=== PATIENT | female | born 1990 | race Caucasian/White ===

== ENCOUNTER → 2021-07-09 13:57 | Outpatient (CLI) | payer OTHER, SELFPAY ==
--- NOTE | 2021-07-09 14:03 | DI.US.S_ITS ---
PROCEDURE: US OB LIMITED INDICATIONS: INITIAL DATING VIABILITY OUTSIDE/PRIOR DATING DATA: Last menstrual period (LMP): Unknown. Estimated date of delivery (ROHIT) from first dating scan: December 12, 2021. TECHNIQUE: Real-time scanning was performed of the fetus, with image documentation. COMPARISON: None. FINDINGS: A single living intrauterine gestation is present. Presentation: Vertex. Placenta: Placental position is posterior, without previa. Amniotic fluid index: 11.9 cm, normal range is 5-24 cm. Single deepest vertical pocket is 4 cm. heart rate: 150 beats per minute. Maternal cervical canal: 3.4 cm long. Normal lower limit is 2.5 cm. Clinically estimated gestational age: 17 weeks, 5 days IMPRESSION: Single live intrauterine gestation as detailed above. Dictated by: Landen Enriquez M.D. on 07/09/2021 at 17:07 Approved by: Landen Enriquez M.D. on 07/09/2021 at 17:09
[2021-07-09 15:11] LABS: Add Manual Diff / Slide Review NO; Basophils Absolute Auto 0 /uL (0-100); Basophils Percent Auto 0.4 % (0-2); Eosinophils Absolute Auto 100 /uL (0-450); Eosinophils Percent Auto 1.2 % (2-4); Hematocrit 35.5 % (36-46); Hemoglobin 12.4 g/dL (12.0-16.0); Lymphocytes Absolute Auto 1600 /uL (1100-4500); Lymphocytes Percent Auto 15.6 % (25-40); Mean Corpuscular HGB Conc 34.9 % (30-36); Mean Corpuscular Hemoglobin 31.2 PG (26-34); Mean Corpuscular Volume 89.3 fL (80-100); Monocytes Absolute Auto 700 /uL (0-900); Monocytes Percent Auto 6.7 % (3-14); Neutrophils Absolute Auto 8100 /uL (1500-7000); Neutrophils Percent Auto 76.1 % (50-75); Platelet Count 279 X10^3/uL (150-400); Red Blood Cell Count 3.97 X10^6/uL (4.0-5.2); Red Cell Distribution Width 12.7 % (11.6-14.8); White Blood Cell Count 10.6 X10^3/uL (4.5-11.0)
[2021-07-09 15:39] LABS: Appearance Urine UA CLOUDY; Bilirubin Urine UA NEGATIVE (NEGATIVE); Color Urine UA YELLOW; Glucose Urine UA NEGATIVE (Negative); Ketones Urine UA NEGATIVE (NEGATIVE); Leukocyte Esterase Urine UA NEGATIVE (NEGATIVE); Nitrite Urine UA NEGATIVE (Negative); Occult Blood Urine UA NEGATIVE (Negative); Protein Urine UA NEGATIVE (Negative); Urobilinogen Urine UA 0.2 E.U./dL (0.2)
[2021-07-09 16:19] LABS: pH Urine UA 6.5 (4.5-8.0)
[2021-07-10 06:50] LABS: RPR Screen Non Reactive (Non Reactive)
[2021-07-10 08:08] LABS: Varicella IgG Antibody 518 index (Immune >165)
[2021-07-10 20:20] LABS: Hepatitis B Surface Antigen NEGATIVE s/c (NEGATIVE); Rubella Antibody IgG 18.2 IU/mL (>15)
[2021-07-10 20:43] LABS: HIV 1 & 2 Ab/Ag 4th Gen Combo NEGATIVE (NEGATIVE); Hep C Virus Ab w/Reflex Quant NEGATIVE s/c (NEGATIVE)
== END ==
PROVIDERS: Referring Provider Family Medicine; Visit Provider Family Medicine
DX: Z34.82 Encounter for supervision of other normal pregnancy, second trimester (principal); Z3A.17 17 weeks gestation of pregnancy
CPT/HCPCS: 36415; 76815; 80055; 81003; 86787; 86803; 86850; 86900; 86901; 87086; 87389

== ENCOUNTER → 2021-07-28 14:11 | Outpatient (CLI) | payer OTHER, SELFPAY ==
--- NOTE | 2021-07-28 14:12 | DI.US.S_ITS ---
PROCEDURE: US OB >= 14 WEEKS FETUS INDICATIONS: ANATOMY OUTSIDE/PRIOR DATING DATA: First dating scan (date and location): 07/09/2021. Estimated date of delivery (ROHIT) from first dating scan: 12/12/2021 TECHNIQUE: Real-time scanning was performed of the fetus, with image documentation and biometric measurements. COMPARISON: [facility], OB LIMITED, 07/09/2021, 14:24. FINDINGS: General: A single living intrauterine gestation is present. Presentation: Breech Placenta: Placental position is posterior right, without previa. Amniotic fluid index: 14.8 cm, normal range is 5-24 cm. Single deepest vertical pocket is 4.1 cm. heart rate: 145 beats per minute. Maternal cervical canal: 4.1 cm long. Normal lower limit is 2.5 cm. biometrics: Biparietal diameter: 4.5 cm, 19 weeks 5 days Head circumference: 17.1 cm, 19 weeks 5 days Abdominal circumference: 16.3 cm, 21 weeks 3 days Femur length: 3.1 cm, 19 weeks 3 days Clinically estimated gestational age: 20 weeks 3 days Composite gestational age from present scan: 20 weeks 1 day Estimated weight and percentile: 350 g, 42 percentile Anatomic survey: Neuro: Ventricles are non-dilated at less than 10 mm. Cisterna magna is normal at 3-11 mm. Cerebellum is normal in size and morphology. Nuchal skin fold: Normal at less than 6 mm between 14-21 weeks gestational age. Face: Nose and lips, facial profile are normal. Spine: No evidence for spina bifida. Heart: Normal ventricular outflow tracts. Four chamber view of the heart is not well seen due to positioning. Diaphragm: Diaphragm is intact. Stomach: Left-sided stomach is present. Kidneys: No hydronephrosis. Normal is less than 5 mm in 2nd trimester, less than 7 mm in 3rd trimester. Cord: 3-vessel cord has orthotopic insertion. Bladder: Normal in size. Extremities: All 4 extremities identified. IMPRESSION: 1. Carlos living intrauterine at 20 weeks 1 day based on today's ultrasound. This is concordant with the prior ultrasound. There is expected interval growth. Fetus is in the 42 percentile for weight. 2. Normal placenta and amniotic fluid. 3. The four-chamber view of the heart is not well seen due to positioning. Otherwise normal anatomic survey. We strive to produce accurate, complete, and clear reports of imaging services. To assist us in improving patient care, this report was composed using standard report templates and voice recognition software. Therefore, it may contain abnormal punctuation, insertions and/or omissions. Occasional wrong-word or sound-alike substitutions may occur. Though we review the report and make efforts to correct it, we do recommend that the report be read carefully in proper context to recognize any text inaccuracies. Dictated by: Gilbert Tinsley M.D. on 07/28/2021 at 17:03 Approved by: Gilbert Tinsley M.D. on 07/28/2021 at 17:12
== END ==
PROVIDERS: PCP Family Medicine; Referring Provider Family Medicine; Visit Provider Family Medicine
DX: Z34.82 Encounter for supervision of other normal pregnancy, second trimester (principal); Z3A.20 20 weeks gestation of pregnancy
CPT/HCPCS: 76811

== ENCOUNTER → 2021-09-17 14:13 | Outpatient (CLI) | payer OTHER, SELFPAY ==
--- NOTE | 2021-09-17 14:14 | DI.US.S_ITS ---
PROCEDURE: US OB LIMITED INDICATIONS: 24 wk anatomy scan OUTSIDE/PRIOR DATING DATA: First dating scan (date and location): 07/09/2021. Estimated date of delivery (ROHIT) from first dating scan: 12/12/2021. The calculations are made using the ultrasound ROHIT of 12/12/2021. TECHNIQUE: Real-time scanning was performed of the fetus, with image documentation and biometric measurements. COMPARISON: [facility], OB LIMITED, 07/09/2021, 14:24. [facility], OB >= 14 WEEKS FETUS, 07/28/2021, 14:13. FINDINGS: General: A single living intrauterine gestation is present. Presentation: Vertex. Placenta: Placental position is posterior right lateral , without previa. Amniotic fluid index: 14.5 cm, normal range is 5-24 cm. heart rate: 141 beats per minute. Maternal cervical canal: 4.0 cm long. Normal lower limit is 2.5 cm. Clinically estimated gestational age: 27 weeks 5 days Normal four-chamber heart. IMPRESSION: 1. Single living IUP redemonstrated and today's exam demonstrating normal appearance of the four-chamber heart. We strive to produce accurate, complete, and clear reports of imaging services. To assist us in improving patient care, this report was composed using standard report templates and voice recognition software. Therefore, it may contain abnormal punctuation, insertions and/or omissions. Occasional wrong-word or sound-alike substitutions may occur. Though we review the report and make efforts to correct it, we do recommend that the report be read carefully in proper context to recognize any text inaccuracies. Dictated by: Markel MCMANUS Interpreted: Landen Enriquez MD on 09/17/2021 at 14:51 Transcribed by: ELIJAH on 09/17/2021 at 14:52 Approved by: Landen Enriquez M.D. on 09/17/2021 at 16:31
== END ==
PROVIDERS: PCP Family Medicine; Referring Provider Family Medicine; Visit Provider Family Medicine
DX: Z3A.27 27 weeks gestation of pregnancy; Z67.91 Unspecified blood type, Rh negative; O26.892 Other specified pregnancy related conditions, second trimester
CPT/HCPCS: 36415; 76815; 86850

== ENCOUNTER → 2021-10-12 09:48 | Outpatient (CLI) | payer OTHER, SELFPAY ==
[2021-10-12 11:38] LABS: Add Manual Diff / Slide Review NO; Basophils Absolute Auto 0 /uL (0-100); Basophils Percent Auto 0.2 % (0-2); Eosinophils Absolute Auto 100 /uL (0-450); Eosinophils Percent Auto 1.2 % (2-4); Hematocrit 31.7 % (36-46); Hemoglobin 11.1 g/dL (12.0-16.0); Lymphocytes Absolute Auto 1300 /uL (1100-4500); Lymphocytes Percent Auto 13.1 % (25-40); Mean Corpuscular HGB Conc 34.9 % (30-36); Mean Corpuscular Hemoglobin 31.8 PG (26-34); Mean Corpuscular Volume 91.2 fL (80-100); Monocytes Absolute Auto 600 /uL (0-900); Monocytes Percent Auto 6.2 % (3-14); Neutrophils Absolute Auto 7800 /uL (1500-7000); Neutrophils Percent Auto 79.3 % (50-75); Platelet Count 285 X10^3/uL (150-400); Red Blood Cell Count 3.48 X10^6/uL (4.0-5.2); Red Cell Distribution Width 12.4 % (11.6-14.8); White Blood Cell Count 9.8 X10^3/uL (4.5-11.0)
[2021-10-12 11:49] LABS: GTT (PREG) 1 Hour PP 50gm Dose 111 mg/dL (76-139)
== END ==
PROVIDERS: PCP Family Medicine; Referring Provider Family Medicine; Visit Provider Family Medicine
DX: Z34.83 Encounter for supervision of other normal pregnancy, third trimester (principal); Z3A.26 26 weeks gestation of pregnancy
CPT/HCPCS: 36415; 82950; 85025

== ENCOUNTER → 2021-11-12 12:15 | Outpatient (CLI) | payer OTHER, SELFPAY ==
[2021-11-13 12:57] LABS: Strep Grp B PCR NEG for Grp B Strep
== END ==
PROVIDERS: PCP Family Medicine; Visit Provider Family Medicine
DX: Z34.93 Encounter for supervision of normal pregnancy, unspecified, third trimester (principal); Z3A.36 36 weeks gestation of pregnancy
CPT/HCPCS: 87653

== ENCOUNTER 2021-12-07 13:19 | Outpatient (CLI) | payer OTHER, SELFPAY ==
--- NOTE | 2021-12-07 13:54 | PM.OBTRLD ---
Visit Information Visit Information Date of evaluation: 12/07/21 Primary OB Provider: Nilda Mora Reason for Evaluation: Yes other Comments/Additional reasons for admission: Pt is a 31yo at 39w4d here with SOB and increasing edema. The pt reports that her swelling seems to have acutely worsened overnight. She has been feeling increasingly SOB today. She also notes increased anxiety recently. She denies any vaginal bleeding, LOF, or contractions. She has been feeling her baby move consistently. She does report having contractions over the weekend that then tapered off. [facility] Social History marital status: number of children: 2 household members: spouse and children lives independently: Yes caregiver/support person: No housing: house pets and animals: Yes (2 dogs: safe around babies. ) education level: college (AA degree: pre-nursing. 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[employer], also a [employer].) current occupational exposures/hazards: No roland/yazdanism: Yarsanism special roland needs: No seatbelt use: always do you feel safe at home: Yes Smoking Status: Never smoker second hand exposure: No alcohol intake: never substance use type: does not use during the past year weight has: remained stable well-balanced diet: daily or most days daily servings fruits/ve-4 caffeine: Yes (6 oz coffee/day) Type(s) of exercise: walking frequency: 5-6 times per week ( Usually an adamant gym goer, but doesn't feel good lately, just walking, regularly. ) duration: 30-45 minutes/day Evaluation Evaluation Baseline heart rate: 140 Variability: Moderate (11-25) monitor accelerations: Present Monitor Decelerations: Absent Category of Tracing: Reactive Diagnosis, Plan/Disposition Final Diagnosis (1) Lower extremity edema: Status: Acute (2) Shortness of breath: Status: Acute Plan/Disposition Plan: Pt is a 31yo at 39w4d here with SOB and increasing edema. Pts O2 saturation and BP in good range here. Normal exam. Discussed return precautions. Pt feeling very frustrated about not going into labor yet - discussed contractions that taper away are common in . Stable for d/c home. OB Disposition: home
== END 2021-12-07 14:05 | disposition home or self-care (01) ==
LOC: LABOR 14:00 → OB 12-08 13:16
PROVIDERS: PCP Family Medicine; Referring Provider Family Medicine; Visit Provider Family Medicine
DX: O12.03 Gestational edema, third trimester (principal); O26.893 Other specified pregnancy related conditions, third trimester; R06.02 Shortness of breath; Z3A.39 39 weeks gestation of pregnancy
CPT/HCPCS: 59025; G0378; G0379

== ENCOUNTER 2021-12-08 01:55 | Inpatient (IN) | payer OTHER, SELFPAY ==
--- NOTE | 2021-12-08 02:56 | P.HPOB_ITS ---
OB HPI Date/Time Date of admission: 12/08/21 Date Patient Seen: 12/08/21 Time Patient Seen: 02:56 History of Present Condition Chief complaint: waterbroke ROHIT Calculator Estimated Delivery Date Method Current WG Current Estimate 12/10/21 Manual 39w 5d Final ROHIT - JOSÉ LUIS Other Estimates 12/10/21 LMP (Uncertain) 39w 5d 12/11/21 Ultrasound #1 39w 4d Estimated Gestational Age (weeks): 39w5d : 4 Para: 2 Narrative: 31yo at 39w5d here with loss of fluid. Pt reports that around 6pm yesterday evening she started leaking fluid. Contractions did not start until within the past hour. She denies any significant vaginal bleeding. She is feeling her baby move regularly. The pt had no complications with her . care: good care, initiated at week # (19) and pounds weight gain (30) Dating criteria OB: LMP confirmed by 1st trimester US Ultrasounds: normal 1st trimester US and normal mid trimester US Obstetrical complications: none Medical complications OB: none Preadmission Labs Last OB Lab Results: Blood Type A Negative 07/09/21 14:40 Antibody Screen Negative 09/17/21 14:57 Hematocrit 31.7 % (36-46) L 10/12/21 11:01 Hemoglobin 11.1 g/dL (12.0-16.0) L 10/12/21 11:01 Hepatitis B Surface Antigen Negative s/c (NEGATIVE) 07/09/21 14 :40 Hepatitis C Antibody Negative s/c (NEGATIVE) 07/09/21 14:40 Rubella Antibody 18.2 IU/mL (>15) 07/09/21 14:40 Varicella-Zoster IgG Antibody 518 index (Immune >165) 07/09/21 14:40 Glucose 1 Hour 111 mg/dL (76-139) 10/12/21 11:01 Group B Streptococcus (PCR) Neg for grp b strep 11/12/21 12:15 -: Urine: negative External Labs -: Urine: negative Prior (ies) Past Pregnancies Del. Date GA/Weeks Labor Lgth Wt Sex Route Outcome Anesthesia Place Delv Breastfeed Preg Comp Name 10/27/11 39 2 7 lb 14 oz Male vaginal live - full te rm intravenous analgesics [facility] [place] 14 mos none Johnny 09/11/14 40 1 8 lb Female vaginal live - full term none [facility] [place] 2 yrs, mastitis none Suly 03/26/20 7 spontaneous spontaneous 09/24/20 7 spontaneous spontaneous Delivery Date: 10/27/11 Last Updated by: Kalyani Lopez R.N. Some early hyperemesis, hospitalized twice for fluids. Milk oversupply: recurrent mastitis. Delivery Date: 09/11/14 Last Updated by: Kalyani Lopez R.N. 30 min active labor to baby. Delivery Date: 03/26/20 Last Updated by: Kalyani Lopez R.N. [employer] . Delivery Date: 09/24/20 Last Updated by: Kalyani Lopez R.N. completed on its own Evaluation Evaluation Baseline heart rate: 130 Variability: Moderate (11-25) monitor accelerations: Present Monitor Decelerations: Absent Contraction Frequency (minutes): 3 Status: Category l Dilation (cm): 4 Effacement (%): 70 station: -2 [facility] Social History marital status: number of children: 2 household members: spouse and children lives independently: Yes caregiver/support person: No housing: house pets and animals: Yes (2 dogs: safe around babies. ) education level: college (AA degree: pre-nursing. 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[employer], also a [employer]ist.) current occupational exposures/hazards: No roland/denominational: Taoist special roland needs: No seatbelt use: always do you feel safe at home: Yes Smoking Status: Never smoker second hand exposure: No alcohol intake: never substance use type: does not use during the past year weight has: remained stable well-balanced diet: daily or most days daily servings fruits/ve-4 caffeine: Yes (6 oz coffee/day) Type(s) of exercise: walking frequency: 5-6 times per week ( Usually an adamant gym goer, but doesn't feel good lately, just walking, regularly. ) duration: 30-45 minutes/day Meds Home Medications and Allergies Home Medications Medication Instructions Recorded Confirmed Type prenat.vits,norma,usy-[id number] 1 tab PO DAILY 07/13/21 11/26/21 History Allergies Allergy/AdvReac Type Severity Reaction Status Date / Time erythromycin base Allergy Severe Hives Verified 11/26/21 11:59 OB Exam Narrative Exam Narrative: Gen: NAD, sitting comfortably in bed, appears well CV: RRR, no murmurs Resp: clear to auscultation bilaterally Abd: soft, nontender, gravid Ext: no edema Assessment and Plan Assessment and Plan Assessment and Plan narrative: Pt is a 31yo at 39w5d here with SROM. No complications with . GBS negative, Rh negative (Rhogam given 09/20/21). - Expectant management, anticipate - FHT reassuring - GBS negative, no prophylaxis indicated - Desires natural methods for pain control - Collect cord blood for Rh status after delivery
[2021-12-08 03:12] VITALS: BP 121/59
[2021-12-08 03:25] LABS: COVID19 -Nasal RAPID Negative (Negative)
[2021-12-08 04:12] LABS: Add Manual Diff / Slide Review NO; Basophils Absolute Auto 100 /uL (0-100); Basophils Percent Auto 0.7 % (0-2); Eosinophils Absolute Auto 100 /uL (0-450); Eosinophils Percent Auto 0.5 % (2-4); Hematocrit 34.8 % (36-46); Hemoglobin 11.9 g/dL (12.0-16.0); Lymphocytes Absolute Auto 1800 /uL (1100-4500); Lymphocytes Percent Auto 15.5 % (25-40); Mean Corpuscular HGB Conc 34.3 % (30-36); Mean Corpuscular Hemoglobin 31.3 PG (26-34); Mean Corpuscular Volume 91.4 fL (80-100); Monocytes Absolute Auto 700 /uL (0-900); Monocytes Percent Auto 6.3 % (3-14); Neutrophils Absolute Auto 8900 /uL (1500-7000); Platelet Count 273 X10^3/uL (150-400); Red Cell Distribution Width 13.2 % (11.6-14.8); White Blood Cell Count 11.6 X10^3/uL (4.5-11.0)
[2021-12-08] MEDS: OXYTOCIN 10 UNIT/ML VIAL IM (05:36)
--- NOTE | 2021-12-08 05:53 | P.PCNOB_ITS ---
Labor & Delivery Delivery date: 12/08/21 Cervical ripening method: none Induction method: none Delivery monitor: none Route of delivery: Episiotomy description: None L&D Laceration Description: None Quantitative Blood Loss: 25 Anesthesia Type: None Complications: None Narrative: PROCEDURE: at 39w5d presented in active labor with SROM and was admitted to Labor and Delivery. The patient progressed through the 1st stage over 9 hours. Pain was controlled with natural methods. The patient progressed through the 2nd stage over 45 minutes and delivered a viable male infant with APGARs 9/9 at 5:30am via without complications. The cord was cut and clampe d after it stopped pulsating. The perineum and vagina were inspected with no lacerations. PREPROCEDURE DIAGNOSIS: Intrauterine at 39w5d GBS negative RH negative POSTPROCEDURE DIAGNOSIS: Intrauterine at 39w5d, delivered Same as preprocedure Baby 1: gender: Male Presentation: vertex Position: Right Occiput Anterior Placenta delivery description: Spontaneous Cord Vessel Description: 3 Vessels score (1 min): 9 score (5 min): 9 weight: 8 lb 8.122 oz Plan for aftercare: Routine care
[2021-12-08] MEDS: IBUPROFEN 600 MG TABLET PO ×3 (08:50→20:24)
[2021-12-08] MEDS: FERROUS SULFATE 325 MG TABLET PO (09:32)
[2021-12-08] MEDS: PRENATAL VIT,CALC/IRON/FOLIC 1 TABLET 1 TAB PO (09:32)
[2021-12-08] MEDS: DOCUSATE 100 MG CAPSULE PO (09:33)
[2021-12-08] MEDS: DERMOPLAST SPRAY 20% 60 ML 1 SPRAY TOP (14:27)
[2021-12-08] MEDS: LANOLIN OINT 7 GM 1 APPLIC TOP (14:27)
[2021-12-09] MEDS: IBUPROFEN 600 MG TABLET PO (02:26)
[2021-12-09 08:40] VITALS: BP 90/50; PULSE 60; RESP 16; TEMP 36.6
--- NOTE | 2021-12-09 10:23 | P.DS_ITS ---
Discharge Providers Provider Date of admission: 12/08/21 01:55 Discharge Date: 12/09/21 Primary care physician: Nilda Mora MD Consults: 12/09/21 05:54 Consult to Supervisor [employer] Routine Comment: Discharge provider: Nilda Mora MD Summary Hospital Course Date Patient Seen: 12/09/21 Time Patient Seen: 09:35 Diagnoses: Intrauterine at 39w5d GBS negative RH negative Hospital Course: The patient presented in active labor with SROM at home. She used natural methods for pain control. She progressed to complete and had a spontaneous vaginal delivery of a viable baby boy on 12/08/2021. There were no lacerations. , there were no complications. At the time of discharge she was voiding, ambulating, passing flatus without difficulty. Her lochia was decreasing appropriately. Her pain was well controlled. She was breast-feeding with good latch. She desires a Nexplanon for contraception. RhoGAM was a dministered due to baby with Rh positive status. She will follow up in clinic in 6 weeks for check. Peripartum Data Infant Delivery Method: Natural Vaginal Laceration Description: None Episiotomy description: None Procedures: Spontaneous vaginal delivery complications: none 1: Gender: Male Disposition of : home Discharge Diagnosis (1) Spontaneous vaginal delivery: Status: Acute Time Spent with Patient Time attestation: Total time spent providing and/or coordinating discharge services: Objective Labs Result Diagrams: 12/08/21 04:00 Labs: Laboratory Results - last 24 hr 12/08/21 11:13 Maternal Bleed Negative Exam Vital Signs (past 8 hours): - 12/09/21 08:40 Temperature 97.9 F Pulse Rate 60 Respiratory Rate 16 Blood Pressure 90/50 L Narrative Exam Narrative: Gen: NAD, sitting comfortably in bed, appears well CV: RRR, no murmurs Resp: clear to auscultation bilaterally Abd: soft, appropriately tender, fundus firm and below the umbilicus, non distended Ext: no edema Discharge Plan Discharge Plan Patient Disposition: Home Discharge orders & Medications Prescriptions: Continued prenat.vits,norma,[id number]-nvxta Tablet 1 tab PO DAILY Follow up/Referrals: Nilda Mora MD [Primary Care Provider] - 6 Weeks ('s office will give you an appointment for 6 weeks at [facility]'s appointment.) Diet/Activity/Treatments Diet: Diet as Tolerated and Regular Skin/Wound/Dressing Care Report to your healthcare provider any signs of infection, such as:: chills, fever, increased pain and unusual drainage Visit Report/Discharge Packet Instructions: DI for Labor and Delivery, Vaginal Visit Report Forms: Patient Portal/API, Stroke Signs & Symptoms Discharge Data Primary Care Provider: Nilda Mora Discharges patient from system. Discharge Date/Time: 12/09/21 11:20
== END 2021-12-09 11:20 | disposition home or self-care (01) | DRG 806 ==
PROVIDERS: Admitting Provider Family Medicine; PCP Family Medicine; Referring Provider Family Medicine; Visit Provider Family Medicine
DX: O42.02 Full-term premature rupture of membranes, onset of labor within 24 hours of rupture (principal); O36.0130 Maternal care for anti-D [Rh] antibodies, third trimester, not applicable or unspecified; Z37.0 Single live birth; Z3A.39 39 weeks gestation of pregnancy; Z20.822 Contact with and (suspected) exposure to COVID-19
CPT/HCPCS: 36415; 59050; 59400; 85025; 85461; 86850; 86900; 86901; 87635; C9803; G0379; J2590